=== PATIENT | female | born 1995 | race Two or more races ===

== ENCOUNTER 2020-01-22 08:10 | Inpatient (IN) | payer BC ==
[~2020-01-22] VITALS: Ht 157.5 cm; Wt 46.7 kg
--- NOTE | 2020-01-22 08:19 | NUR ---
PT HAS CO "THROWING UP RED BLOOD SINCE YESTERDAY". ABDOMINAL PAIN IN UPPERGASTRIC AREA W N/V. PT VSS. NO IN RESP DISTRESS. DENIES CP OR SOB. HX OF STOMACH ULCER.
[2020-01-22] MEDS ORDERED: ONDANSETRON 2MG/ML, 2ML ONE ×2 (08:25→10:49)
[2020-01-22] MEDS ORDERED: FAMOTIDINE 20 MG/2 ML ONE (08:25)
[2020-01-22] MEDS ORDERED: MAALOX/HYOSCYAMINE/LIDOCAINE 45 ML BTL ONE (08:25)
[2020-01-22] MEDS ORDERED: SODIUM CHLORIDE FLUSH 10ML SYR IVF ONE ×2 (08:30→09:00)
[2020-01-22] MEDS ORDERED: FAMOTIDINE 20 MG/2 ML IV ONE (08:30)
[2020-01-22] MEDS ORDERED: MAALOX/HYOSCYAMINE/LIDOCAINE 45 ML BTL PO ONE (08:30)
[2020-01-22] MEDS ORDERED: ONDANSETRON 2MG/ML, 2ML IVPush ONE ×2 (08:30→11:00)
[2020-01-22 08:39] LABS: BASOPHILS # (AUTO) 0.03 x10^3/uL (0-0.1); BASOPHILS % (AUTO) 0 % (0-1); EOSINOPHILS # (AUTO) 0.04 x10^3/uL (0-0.4); EOSINOPHILS % (AUTO) 0 % (1-7); LYMPHOCYTES # (AUTO) 2.57 x10^3/uL (1-3.4); LYMPHOCYTES % (AUTO) 24 % (22-44); MD NO; MEAN CORPUSCULAR HEMOGLOBIN 29.8 pg (27.0-34.8); MEAN CORPUSCULAR HGB CONC 33.2 g/dL (32.4-35.8); MEAN CORPUSCULAR VOLUME 89.6 fL (80-100); MEAN PLATELET VOLUME 7.1 fL (7.4-10.4); MONOCYTES # (AUTO) 0.53 x10^3/uL (0.2-0.8); MONOCYTES % (AUTO) 5 % (2-9); NEUTROPHILS # (AUTO) 7.78 x10^3/uL (1.8-6.8); NEUTROPHILS % (AUTO) 71 % (42-75); PLATELET COUNT 273 x10^3/uL (130-400); RED BLOOD COUNT 3.69 x10^6/uL (3.82-5.3); RED CELL DISTRIBUTION WIDTH 13.8 % (9.6-15.2)
[2020-01-22 08:47] LABS: ALANINE AMINOTRANSFERASE 13 U/L (12-78); ALBUMIN 3.3 g/dL (3.4-5.0); ANION GAP 10 mmol/L (5-15); CALCIUM 8.1 mg/dL (8.5-10.1); CHLORIDE 108 mmol/L (98-107); CREATININE 0.66 mg/dL (0.55-1.02)
[2020-01-22 08:52] LABS: ALKALINE PHOSPHATASE 50 U/L (45-117); BILIRUBIN,TOTAL 0.4 mg/dL (0.2-1.0); TOTAL PROTEIN 6.7 g/dL (6.4-8.2)
[2020-01-22] MEDS ORDERED: PANTOPRAZOLE 40 MG IV ONE (08:54)
--- NOTE | 2020-01-22 08:57 | NUR ---
dr levin spoke with dr graham
[2020-01-22] MEDS ORDERED: SODIUM CHLORIDE 0.9% 1,000ML IVBOLUS ONE (09:00)
[2020-01-22] MEDS ORDERED: PANTOPRAZOLE 40 MG IV IVPush ONE (09:00)
--- NOTE | 2020-01-22 09:05 | NUR ---
PT AMBULTATED TO BATHROOM W STEADY GATE FOR UA
[2020-01-22 09:18] LABS: MICROSCOPIC AUTO
--- NOTE | 2020-01-22 09:33 | NUR ---
GI AT BEDSIDE DISCUSSING POC
[2020-01-22] MEDS ORDERED: PROPOFOL 10 MG/ML, 20ML ONE ×2 (10:01→10:10)
[2020-01-22] MEDS: PANTOPRAZOLE 80 MG in SODIUM CHLORIDE 0.9% 100 ML IV SCH ×4 (10:22→21:58)
[2020-01-22] MEDS ORDERED: PROPOFOL 10 MG/ML, 20ML IVPush ONE (10:30)
--- NOTE | 2020-01-22 10:30 | NUR ---
PT TOLERATED EGD WELL. 300 MG PROPOFOL TOTAL ADMINISTERED BY MD. RAGLAND THROUGH OUT PROCEDURE. PT IS DROWSY, AROUSABLE, TALKING. AIRWAY CLEAR. NO N/V. PARENT AT BEDSIDE NOW.
[2020-01-22] MEDS: SODIUM CHLORIDE 0.9% 1,000 ML IV SCH ×2 (10:42→21:57)
--- NOTE | 2020-01-22 10:47 | NUR ---
MEDICATED FOR PAIN AND NAUSEA. [facility] ART AT BEDSIDE.
[2020-01-22] MEDS ORDERED: MORPHINE SULFATE 4 MG/ML, 1ML ONE (10:49)
[2020-01-22] MEDS ORDERED: ONDANSETRON 2MG/ML, 2ML IVPush PRN (11:00)
[2020-01-22] MEDS ORDERED: morphine SULFATE 10 MG/ML, 1ML IVPush PRN (11:00)
[2020-01-22] MEDS ORDERED: MORPHINE SULFATE 4 MG/ML, 1ML IVPush PRN (11:00)
--- NOTE | 2020-01-22 11:14 | NUR ---
REPORT TO MARCOS
[2020-01-22 12:30] VITALS: BP 109/71
[2020-01-22] MEDS ORDERED: EPINEPHRINE SYRINGE 0.1 MG/ML, 10ML ONE (13:09)
[2020-01-22 18:58] VITALS: BP 97/65
[2020-01-22 21:54] VITALS: BP_SYST 100; BP_SYST 102; BP_SYST 95; BP_DIAS 58; BP_DIAS 61; BP_DIAS 62
[2020-01-23 01:06] VITALS: BP 95/57
[2020-01-23 06:20] LABS: BASOPHILS # (AUTO) 0.02 x10^3/uL (0-0.1); BASOPHILS % (AUTO) 0 % (0-1); EOSINOPHILS % (AUTO) 1 % (1-7); LYMPHOCYTES % (AUTO) 26 % (22-44); MD NO; MEAN CORPUSCULAR HEMOGLOBIN 29.5 pg (27.0-34.8); MEAN CORPUSCULAR VOLUME 89.4 fL (80-100); MEAN PLATELET VOLUME 7.3 fL (7.4-10.4); MONOCYTES # (AUTO) 0.37 x10^3/uL (0.2-0.8); MONOCYTES % (AUTO) 4 % (2-9); NEUTROPHILS # (AUTO) 6.12 x10^3/uL (1.8-6.8); NEUTROPHILS % (AUTO) 69 % (42-75); PLATELET COUNT 208 x10^3/uL (130-400); RED BLOOD COUNT 2.66 x10^6/uL (3.82-5.3); RED CELL DISTRIBUTION WIDTH 13.6 % (9.6-15.2)
[2020-01-23 06:25] LABS: ALBUMIN 2.5 g/dL (3.4-5.0); ANION GAP 6 mmol/L (5-15); CALCIUM 7.4 mg/dL (8.5-10.1); CHLORIDE 115 mmol/L (98-107)
[2020-01-23 06:28] LABS: ALANINE AMINOTRANSFERASE 9 U/L (12-78); ALKALINE PHOSPHATASE 35 U/L (45-117); BILIRUBIN,TOTAL 0.4 mg/dL (0.2-1.0); CREATININE 0.49 mg/dL (0.55-1.02)
[2020-01-23 06:46] VITALS: BP 92/56
[2020-01-23 07:43] VITALS: BP_SYST 100; BP_SYST 92; BP_DIAS 60; BP_DIAS 62
[2020-01-23 07:44] VITALS: BP 96/67
[2020-01-23] MEDS: PANTOPRAZOLE 80 MG in SODIUM CHLORIDE 0.9% 100 ML IV SCH ×2 (07:47→18:12)
[2020-01-23] MEDS: SODIUM CHLORIDE 0.9% 1,000 ML IV SCH (07:47)
[2020-01-23 13:48] VITALS: BP 93/52
[2020-01-23] MEDS ORDERED: ACETAMINOPHEN 325 MG TABLET PO PRN (16:30)
[2020-01-23] MEDS: AMOXICILLIN 500 MG CAPSULE PO SCH (20:38)
[2020-01-23] MEDS: CLARITHROMYCIN 500 MG TABLET PO SCH (20:38)
[2020-01-23 21:01] VITALS: BP 93/60
[2020-01-24 01:25] VITALS: BP 94/59
[2020-01-24] MEDS: PANTOPRAZOLE 80 MG in SODIUM CHLORIDE 0.9% 100 ML IV SCH (03:33)
[2020-01-24 07:28] VITALS: BP 95/60
[2020-01-24] MEDS: AMOXICILLIN 500 MG CAPSULE PO SCH (08:35)
[2020-01-24] MEDS: CLARITHROMYCIN 500 MG TABLET PO SCH (08:35)
[2020-01-24] MEDS ORDERED: OMEP-110 PO (09:59)
[2020-01-24] MEDS ORDERED: AMOX-291 PO (09:59)
[2020-01-24] MEDS ORDERED: CLAR-14 PO (09:59)
== END 2020-01-24 13:00 | disposition home or self-care (01) | DRG 378 ==
LOC: ED 10:21 → EDIP 10:22 → ED 10:40 → 4EST 11:30
PROVIDERS: ADMIT Internal Medicine; ATTEND Hospitalist
PROC: 0W3P8ZZ Control Bleeding in Gastrointestinal Tract, Via Natural or Artificial Opening Endoscopic (ICD-10-PCS; 2020-01-22)
PROC: 0DB68ZX Excision of Stomach, Via Natural or Artificial Opening Endoscopic, Diagnostic (ICD-10-PCS; principal; 2020-01-22 10:30)
DX: K26.4 Chronic or unspecified duodenal ulcer with hemorrhage (principal); D62 Acute posthemorrhagic anemia; B96.81 Helicobacter pylori [H. pylori] as the cause of diseases classified elsewhere; K29.70 Gastritis, unspecified, without bleeding
CPT/HCPCS: 36415; 96361; 96374; 96375; 99291; J3490; 80053; 81001; 83690; 84703; 85014; 85018; 85025; 88305; 93005; 99152; G0378; J2405; J2704; C9113; J2270; J7030